=== PATIENT | male | born 1985 | race Caucasian/White ===

== ENCOUNTER → 2020-05-16 14:28 | Outpatient (CLI) | payer BC, SELFPAY ==
--- NOTE | ~2020-05-16 | XR_ITS ---
EXAMINATION: XR hand RT min 3V EXAM DATE: 05/16/2020 14:43 INDICATION: Right hand pain. Contusion to RT hand with hammer 05/14/20. Posterior Rt hand swelling, roxanne n near posterior 2nd mcp. Initial encounter. TECHNIQUE: Right hand frontal, lateral and oblique projections obtained and reviewed. There is no pr ior study for comparison. FINDINGS: Right metacarpal bones are unremarkable. There are no acute fractures or dislocations iden tified. There is no subcutaneous gas. The soft tissue is unremarkable. There are no radiopaque fo reign bodies. IMPRESSION: No acute osseous findings. Reviewed, dictated and finalized at location A. IMPRESSION: No acute osseous findings.
== END ==
PROVIDERS: PCP Family Medicine; Visit Provider Nurse Practitioner Psychiatric/Mental Health
DX: M79.641 Pain in right hand (principal)
CPT/HCPCS: 73130

== ENCOUNTER → 2020-05-18 09:29 | Outpatient (CLI) | payer BC, SELFPAY ==
--- NOTE | ~2020-05-18 | CT_ITS ---
EXAMINATION: CT hand RT wo con DATE: 05/18/2020 09:45 INDICATION: Right hand pain and swelling. Hammer strike at the second metacarpophalangeal joint. TECHNIQUE: Computed tomography (CT) of the right hand was performed without intravenous contrast. Aut omated exposure control and iterative reconstruction technique were employed. The dose-length product was 127.95 mGy-cm. COMPARISON: Right hand radiographs 05/16/2020 FINDINGS: Bone alignment is normal. No fracture. Joint spaces are normal. There is a 10 mm subcutaneo us mass dorsal to the neck of second metacarpal, likely a hematoma. There is subcutaneous edema aroun d second metacarpophalangeal joint. IMPRESSION: 1. No fracture. Reviewed, dictated and finalized at location A. IMPRESSION: 1. No fracture.
== END ==
PROVIDERS: Visit Provider Nurse Practitioner Psychiatric/Mental Health
DX: M79.641 Pain in right hand (principal); M79.89 Other specified soft tissue disorders; R22.31 Localized swelling, mass and lump, right upper limb
CPT/HCPCS: 73200